=== PATIENT | male | born 1965 | race Caucasian/White ===

== ENCOUNTER 2020-05-11 12:35 | Emergency (ER) | payer MEDICAID, OTHER ==
[~2020-05-11] VITALS: Ht 170.2 cm; Wt 77.1 kg
--- NOTE | 2020-05-11 13:04 | NUR ---
Patient discharged to home in stable condition. Written and verbal after care instructions given. Patient verbalizes understanding of instructions. Stressed follow up or return to ER for worsening s/s.referralls provided for pmd and surgery.
== END 2020-05-11 13:08 | disposition home or self-care (01) ==
LOC: ER 12:35
DX: K40.90 Unilateral inguinal hernia, without obstruction or gangrene, not specified as recurrent (principal); K21.9 Gastro-esophageal reflux disease without esophagitis
CPT/HCPCS: A4663

== ENCOUNTER 2021-08-17 01:12 | Inpatient (IN) | payer MEDICAID, OTHER ==
[~2021-08-17] VITALS: Ht 170.2 cm; Wt 88.6 kg
[2021-08-17] MEDS ORDERED: METOPROLOL TARTRATE 50 MG TABLET PO ONE (02:00)
[2021-08-17] MEDS ORDERED: ASPIRIN 81 MG TAB.CHEW PO ONE (02:00)
[2021-08-17] MEDS ORDERED: METOPROLOL TARTRATE 50 MG TABLET ONE (02:12)
[2021-08-17] MEDS ORDERED: ASPIRIN 81 MG TAB.CHEW ONE (02:12)
[2021-08-17 02:29] LABS: CARBON DIOXIDE 26 mmol/L (21-32); CHLORIDE 109 mmol/L (98-107); GLUCOSE 127 mg/dL (74-106); HEMATOCRIT 42.4 % (36.7-47.1); MEAN CORPUSCULAR HEMOGLOBIN 30.2 uug (23.8-33.4); MEAN CORPUSCULAR VOLUME 90.8 fL (73.0-96.2); PLATELET COUNT (AUTO) 276 K/uL (152-348); POTASSIUM 3.6 mmol/L (3.5-5.1); UREA NITROGEN, BLOOD 22 mg/dL (7-18)
[2021-08-17 02:35] LABS: ALANINE AMINOTRANSFERASE 61 U/L (16-63); ALKALINE PHOSPHATASE 48 U/L (50-136); ASPARTATE AMINOTRANSFERASE 66 U/L (15-37); BILIRUBIN,TOTAL 0.3 mg/dL (0.2-1.0); TOTAL PROTEIN, SERUM 7.2 g/dL (6.4-8.2)
[2021-08-17 02:37] LABS: BILIRUBIN,DIRECT < 0.1 mg/dL (0.0-0.2)
[2021-08-17] MEDS ORDERED: [UNRECOGNIZED DRUG - REMARK] PO (03:58)
--- NOTE | 2021-08-17 04:00 | NUR ---
Patient sleeping on gurny with no distress noted.
--- NOTE | 2021-08-17 05:58 | NUR ---
Dina Ferreira accepted patient to Tele as inpatient.
[2021-08-17] MEDS ORDERED: CLONIDINE HCL 0.1 MG TABLET PO ONE (06:00)
[2021-08-17] MEDS ORDERED: ONDANSETRON 4 MG/2 ML VIAL IV PRN (06:00)
[2021-08-17] MEDS ORDERED: Z GUARD REMEDY PASTE 57 GM TUBE TOP PRN (06:00)
[2021-08-17] MEDS ORDERED: ACETAMINOPHEN 325 MG TABLET PO PRN (06:00)
[2021-08-17] MEDS ORDERED: MAGNESIUM HYDROXIDE 30 ML LIQUID UDC PO PRN (06:00)
[2021-08-17] MEDS ORDERED: CLONIDINE HCL 0.1 MG TABLET ONE (06:03)
--- NOTE | 2021-08-17 06:20 | NUR ---
Transfered to 3rd floor Tele via wheelchair with no distress noted.
--- NOTE | 2021-08-17 06:35 | NUR ---
RECEIVED FROM ER VIA WHEELCHAIR. PT IN NO ACUTE DISTRESS. BELONGING LIST DONE. UNDER THE CARE OF CHRISTINA LYONS NP. IV INTACT. ADMISSION PROCESS AND CARE PLAN INITIATED TO BE CONTINUE BY INCOMING NURSE. SKIN INTACT. SAFETY AND COMFORT PROVIDED. WILL CONTINUE TO MONITOR. .
[2021-08-17 07:02] VITALS: BP 151/98
--- NOTE | 2021-08-17 07:50 | NUR ---
received in bed awake, alert and oriented x4, pleasant mood. no s/sx of pain or distress. iv intact. bed low and locked. comfortable. call light within reach.
[2021-08-17] MEDS ORDERED: LOSARTAN POTASSIUM 50 MG TABLET PO SCH (11:00)
[2021-08-17] MEDS ORDERED: hydrALAZINE HCL 20 MG/1 ML VIAL IV ONE (11:00)
[2021-08-17 11:29] VITALS: BP 188/111
[2021-08-17 13:50] VITALS: BP 145/90
--- NOTE | 2021-08-17 13:50 | NUR ---
rechecked bp 145/90, hr 76. still feels a little dizzy. no acute distress. encouraged to ask for help when needed. bed low and locked w/ siderails up. call light in reach. pt verbalized understanding.
--- NOTE | 2021-08-17 15:00 | NUR ---
informed dr. ayala and evert [facility] appeals manager of bp 169/92, hr 77. no acute distress. denies chest pain, sob, nausea or vomiting just slight dizziness. sinus rhythm on telemonitor. safety measures in place. call light in reach. will continue to monitor.
[2021-08-17 15:25] VITALS: BP 169/92
--- NOTE | 2021-08-17 16:58 | NUR ---
BP rechecked noted 156/120 hr 80, notified Dr. Weesk with order for losartan 50mg x 1 noted and carried out. Patient aware.
[2021-08-17] MEDS ORDERED: LOSARTAN POTASSIUM 50 MG TABLET PO ONE (17:00)
--- NOTE | 2021-08-17 18:49 | NUR ---
alert and oriented x4. no acute distress. assisted with sink bath tolerated. denies chest pain or sob. needs attended. kept comfortable.
[2021-08-17] MEDS ORDERED: OMEP40CA21 PO (18:50)
[2021-08-17] MEDS ORDERED: AMLO-212 PO (18:50)
[2021-08-17] MEDS ORDERED: TAMS-3 PO (18:51)
--- NOTE | 2021-08-17 19:30 | NUR ---
RECEIVED PT AWAKE, ALERT AND ORIENTEDX4. PT IN NO ACUTE DISTRESS. IV INTACT. SAFETY AND COMFORT PROVIDED. WILL CONTINUE TO MONITOR.
[2021-08-17 20:00] VITALS: BP 161/90
[2021-08-17] MEDS ORDERED: AMLODIPINE 5 MG TABLET PO ONE (20:15)
[2021-08-17] MEDS ORDERED: hydrALAZINE HCL 20 MG/1 ML VIAL IV PRN (20:15)
--- NOTE | 2021-08-17 20:30 | NUR ---
NOTIFY DR. TINAJERO REGARDING BP OF PT 161/90. DR ORDERED NORVASC 5MG ONCE. GAVE IT AT 2046H. PT TOLERATED IT WELL. WILL CONTINUE TO MONITOR.
[2021-08-18] VITALS: BP 151/90
[2021-08-18 04:34] VITALS: BP 134/98
--- NOTE | 2021-08-18 05:27 | NUR ---
PT SLEPT COMFORTABLY. PT IN NO ACUTE DISTRESS. PRESCRIBED MEDICATION GIVEN AND PT TOLERATED IT WELL. SAFETY AND COMFORT PROVIDED. WILL ENDORSE TO INCOMING NURSE FOR CONTINUITY OF CARE.
[2021-08-18 06:38] LABS: HEMATOCRIT 45.4 % (36.7-47.1); MEAN CORPUSCULAR HEMOGLOBIN 30.7 uug (23.8-33.4); MEAN CORPUSCULAR VOLUME 91.2 fL (73.0-96.2); PLATELET COUNT (AUTO) 243 K/uL (152-348)
[2021-08-18] MEDS ORDERED: PANTOPRAZOLE SODIUM 40 MG TABLET.DR PO SCH (07:00)
[2021-08-18 07:12] LABS: CREATININE 0.8 mg/dL (0.6-1.3); POTASSIUM 3.8 mmol/L (3.5-5.1)
[2021-08-18 07:26] LABS: MAGNESIUM 2.1 mg/dL (1.8-2.4)
--- NOTE | 2021-08-18 07:30 | NUR ---
Patient received in bed, alert and oriented x4. NSR on monitor. On RA with no SOB or difficulties breathing. No acute distress noted at this time. No c/o pain or discomforts. Left AC IV intact and patent with no redness or swelling noted. Call quick and personal belongings within easy reach. Will continue to monitor.
[2021-08-18] MEDS ORDERED: TAMSULOSIN HCL 0.4 MG CAP.SR.24H PO SCH (09:00)
[2021-08-18] MEDS ORDERED: AMLODIPINE 5 MG TABLET PO SCH ×2 (09:00→21:00)
[2021-08-18] MEDS ORDERED: LOSARTAN POTASSIUM 50 MG TABLET PO SCH (09:00)
[2021-08-18 10:31] VITALS: BP 104/85
[2021-08-18] MEDS ORDERED: LOSA50TA39 PO (10:59)
[2021-08-18] MEDS ORDERED: AMLO-212 PO (10:59)
[2021-08-18] MEDS ORDERED: ATOR20TA PO (10:59)
[2021-08-18] MEDS ORDERED: ASPI81TA31 PO (11:07)
[2021-08-18 11:50] VITALS: BP 131/92
--- NOTE | 2021-08-18 13:10 | NUR ---
Patient discharged in satisfactory condition with all his personal belongings. 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 Patient expressed understanding.
[2021-08-18] MEDS ORDERED: ATORVASTATIN 20 MG TABLET PO SCH (21:00)
[2021-08-19] MEDS ORDERED: TAMSULOSIN HCL 0.4 MG CAP.SR.24H PO SCH (21:00)
== END 2021-08-18 14:30 | disposition home or self-care (01) | DRG 755 ==
LOC: ER 01:18 → TELE3 06:17
PROVIDERS: ADMIT Nurse Practitioner Family; ATTEND Nurse Practitioner Family
DX: F43.9 Reaction to severe stress, unspecified (principal); E87.0 Hyperosmolality and hypernatremia; K21.9 Gastro-esophageal reflux disease without esophagitis; N40.0 Benign prostatic hyperplasia without lower urinary tract symptoms; I10 Essential (primary) hypertension; R74.01 Elevation of levels of liver transaminase levels; I35.1 Nonrheumatic aortic (valve) insufficiency; Z20.822 Contact with and (suspected) exposure to COVID-19; R07.89 Other chest pain; R79.89 Other specified abnormal findings of blood chemistry; R93.1 Abnormal findings on diagnostic imaging of heart and coronary circulation
CPT/HCPCS: 36415; 70030-TC; 71045; 83735; 84100; 85025; 93005; 93307; A4663; G0378; J0360